=== PATIENT | female | born 1940 | race Caucasian/White ===

== ENCOUNTER 2016-09-02 10:41 | Observation (INO) | payer MEDICARE ==
[~2016-09-02] VITALS: Ht 154.9 cm; Wt 65.0 kg
[2016-09-02] VITALS (8 sets, daily range): BP systolic 116–175; BP diastolic 56–92; PULSE 59–80; RESP 12–21; O2SAT 95–98
[~2016-09-02 10:41] MED LIST: ASPI-973 PO; METO25TA6 PO
[2016-09-02 11:53] LABS: BASOPHILS % (AUTO) 0.5 % (0-3); EOSINOPHILS % (AUTO) 2.1 % (0-5); MONOCYTES % (AUTO) 9.6 % (4-12); Mean Corpuscular Hemoglobin 32.3 pg (27.0-35.0); Mean Corpuscular Volume 91.4 fL (81-100); NEUTROPHILS % (AUTO) 60.8 % (40-74); Platelet Count 260 bil/L (150-400)
--- NOTE | 2016-09-02 11:58 | DRSVH ---
PROCEDURE: X-RAY CHEST ONE VIEW, PORTABLE ([id number]) INDICATIONS: CHEST PAIN TECHNIQUE: One view of the chest was acquired. COMPARISON: [facility], , CHEST 1VW (PORTABLE), 04/26/2014, 1:35. [facility], CR, CHEST 1VW (PORTABLE), 04/18/2014, 15:24. FINDINGS: Surgical changes and devices: Previously present left humeral fixation plate. No evidence of device loosening or disruption. Lungs and pleura: No pleural effusions or pneumothorax. Lungs are clear. Mediastinum: Mediastinal contours appear normal. Heart size is normal. Bones and chest wall: No suspicious bony lesions. Overlying soft tissues appear unremarkable. IMPRESSION: Source of chest pain is not seen. Prior surgery proximal left humerus. Dictated by: Stevie Claudio M.D. on 09/02/2016 at 11:56 Approved by: Stevie Claudio M.D. on 09/02/2016 at 11:57
[2016-09-02 12:27] LABS: TROPONIN T 0.01 ug/L (0.0-0.011)
--- NOTE | 2016-09-02 12:59 | ED.REPORT ---
HPI-Chest Pain 40 and Over Date of Service Sep 02, 2016 ED Provider: Chayito Ayala MD Patient is a 76 year old female who presents to the ED due to chest pain onset this morning. She has been having intermittent chest pain every evening for the past 3 days, described as a waxing and waning, sharp pain, that lasts about 30 seconds then abates. Two nights ago it was accompanied by diaphoresis. This morning it was more severe and "quick" then it has been. She currently does not feel any pain, just a "slight pressure and burn" rated at 2/10. 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 She had 2 stents placed 10 year ago and hasn't had any chest pain until 3 days ago. Pt has had been experiencing a lot of stress this month. Nursing Notes Stated Complaint: CHEST PAIN Chief Complaint: Chest Pain Nursing Notes Reviewed: Yes Allergies: Coded Allergies: Penicillins (Verified Allergy, Severe, Rash, 04/17/14) Rash as a child Tkcomwr-Cla-Qib Reductase Inhibitor (Verified Adverse Reaction, Severe, Muscle pain, 04/17/14) Muscle pain ciprofloxacin (Verified Adverse Reaction, Severe, GI PROBLEMS (DIARRHEA), 04/17/14) morphine (Verified Adverse Reaction, Severe, Nausea, 04/17/14) niacin (Verified Adverse Reaction, Severe, leg pain, 04/17/14) Leg pain nitrofurantoin (Verified Adverse Reaction, Severe, COUGH, IRRITABILITY, ) Uncoded Allergies: LIPID EMULSIONS (Adverse Reaction, Severe, MYALGIAS, 04/17/14) Scheduled Aspirin (Aspirin) 81 Mg Tablet 81 MG PO DAILY Metoprolol Succinate ER (Metoprolol Succinate ER) 25 Mg Tab.er.24h 25 MG PO DAILY General Time Seen by MD: 12:57 Chief Complaint Chest pain Hx Obtained From: Patient Sudden in Onset?: Yes Onset Occurred: 5 - 8 hours ago Symptom Duration: Since onset Location: : Chest right Quality: Burning, Pressure Radiation: : Does not radiate Severity: Current: Pain level 2 out of 10 Recent Healthcare: No recent doctor visit Similar Sx Previous: No Past Medical History Past Medical History bladder cancer Reports: Hyperlipidemia Past Surgical History Anterior pelvic exenteration Reports: Hysterectomy Smoking History Former Smoker Social History Alcohol Use: Denies alcohol use Drug Use: Denies drug use Other Social History: Ambulatory Status Independent Review of Systems Cardiovascular: Reports: Chest pain Skin: Reports Diaphoresis Complete sys rev & neg: except as marked. Physical Exam Initial Vital Signs Vital Signs (First) Date Time Temp Pulse Resp B/P Pulse Ox O2 Delivery O2 Flow Rate FiO2 09/02/16 10:47 36.1 74 12 175/92 98 Room Air Initial VS: Reviewed Head / Eyes: Atraumatic, Normocephalic, PERRL ENT: Mucous membranes moist, Conjunctiva normal, No scleral icterus Back: No CVA tenderness Extremities: Vascular intact, Neuro intact, No swelling, No tenderness Skin: Warm, Dry, No cyanosis Neurologic: Alert, Oriented, Nonfocal Psychiatric: Mood/affect normal, Behavior normal, Normal thought content General/Constitutional: Awake, Alert, Cooperative Respiratory / Chest: Atraumatic, Breath sounds NL, Breath sounds = bilat, No respiratory distress, No rales, No rhonchi, No wheezing, No retractions Cardiovascular: Heart rate NL, Regular rhythm, Heart sounds NL, No gallop, No murmurs, No rubs Abdomen: Atraumatic, Soft, Non-tender, No guarding, No rebound, BS normoactive Interpretation & Diagnostics Lab Results Interpretation Result Diagram: 09/02/16 1135 09/02/16 1135 Test 09/02/16 11:35 White Blood Count 5.8th/mm3 (3.8-10.1) Red Blood Count 4.52mil/mm3 (3.90-5.20) Hemoglobin 14.6g/dL (12.0-15.6) Hematocrit 41.3% (35.0-46.0) Mean Corpuscular Volume 91.4fL (81-100) Mean Corpuscular Hemoglobin 32.3pg (27.0-35.0) Mean Corpuscular Hemoglobin Concent 35.4% (32.0-37.0) Red Cell Distribution Width 12.1% (12.3-15.4) Platelet Count 260bil/L (150-400) Neutrophils (%) (Auto) 60.8% (40-74) Lymphocytes (%) (Auto) 26.8% (14-46) Monocytes (%) (Auto) 9.6% (4-12) Eosinophils (%) (Auto) 2.1% (0-5) Basophils (%) (Auto) 0.5% (0-3) Sodium Level 137mEq/L (134-144) Potassium Level 4.8mEq/L (3.5-5.2) Chloride Level 100mEq/L (97-108) Carbon Dioxide Level 23mmol/L (18-29) Blood Urea Nitrogen 22mg/dL (8-27) Creatinine 1.52mg/dL (0.57-1.00) Estimat Glomerular Filtration Rate 48mL/min (>59) Glucose Level 104mg/dL (60-99) Calcium Level 9.1mg/dL (8.5-10.1) Magnesium Level 2.0mg/dL (1.6-2.6) Total Bilirubin 0.5mg/dL (0.0-1.2) Aspartate Amino Transf (AST/SGOT) 19U/L (0-50) Alanine Aminotransferase (ALT/SGPT) 7U/L (0-32) Alkaline Phosphatase 60U/L (25-165) Troponin T 0.010ug/L (0.0-0.011) Total Protein 7.2g/dL (6.4-8.4) Albumin 4.4g/dL (3.4-5.0) ECG Interpretation Time: 11:29 Interpreted by: ED physician Normal ECG Interpretation: Normal sinus rhythm (74), No acute ischemic changes Time: 13:27 Interpreted by: ED physician Normal ECG Interpretation: Normal sinus rhythm (84), No acute ischemic changes X-Ray Chest Interpretation Chest Xray Interpretation: IMPRESSION: Source of chest pain is not seen. Prior surgery proximal left humerus. Dictated by: Stevie Claudio M.D. on 09/02/2016 at 11:56 Approved by: Steive Claudio M.D. on 09/02/2016 at 11:57 View: Portable Interpretation / Wet Read by: Interpret - Radiologist Re-Eval/Medical Decision Med Decision/Clinical Course Compelling story for unstable angina with an episode 2 nights ago last night again this morning increasing frequency duration and intensity with a known history of coronary disease. Initial labs are unremarkable. We will recommend 24-hour rule out and if rules out will need a nuclear stress test tomorrow Time of Eval: 14:00 Patient Status: Condition unchanged, Mild relief Re-Evaluation/Progress Note: Pt rechecked. The minimal chest pressure she felt was relieved with nitro. 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 Accepts admit. Counseled Regarding: Diagnosis, Lab results, Need for admission Discharge & Departure Primary Impression: Unstable angina Disposition: ADMITTED TO HOSPITAL Discharge Condition All VS Reviewed: Yes Condition: Stable Referrals: Sade Walker MD (PCP) Scribe Attestation Portion of this note were transcribed by Bradley Castellanos. I, Dr. Ayala, personally performed the history, physical exam, and medical decision-making: I reviewed and confirmed the accuracy for the information in the transcribed note. Signed by: brian Guzman, 09/02/16 1500 copies to: Sade Walker MD, Shawna L MD Sep 02, 2016 12:59 BRADLEY CASTELLANOS Sep 02, 2016 13:43
[2016-09-02] MEDS ORDERED: Nitroglycerin 2% 1 Gm Ointment TOPICAL ONE (14:05)
[2016-09-02] MEDS ORDERED: METO25TA99 PO (14:50)
[2016-09-02] MEDS ORDERED: Alum-Mag Hydrox-Simeth 30 mL Suspension PO PRN (15:35)
[2016-09-02] MEDS ORDERED: Ondansetron 2 mg/mL 2 mL Inj IVPUSH PRN (15:35)
[2016-09-02] MEDS: MeTOProlol XL 25 mg ER24 Tablet PO SCH (16:40)
--- NOTE | 2016-09-02 17:04 | PCM.HPMED ---
Subjective Date of Service Sep 02, 2016 Primary Provider: Admitting Physician: Chris Wilkerson MD Primary Care Physician: Sade Walker MD Attending Physician: Chris Wilkerson MD Admit Status: From the Emergency Department Chief Complaint: Chest pain History of Present Illness: This is a 76 years old female with past medical history of coronary artery disease status post stenting 2, hyperlipidemia, bladder cancer was injected also with chest pain that started this morning. Patient described the pain as pressure-like, 6 out of 10 in intensity, intermittent and has been going on for 3 day also . She stated and abandoned, and go but has been more steady today reason for which he came to the emergency room. She endorses diaphoresis but no shortness of breath . She denies any aggravating or ligating factors. In the emergency room workup included EKG, troponin, chest x- ray all negative. Chest pain subsided with nitroglycerin paste/ transdermal. . Given her risk factor including hyperlipidemia, age, personal history of coronary artery disease status post stenting. Patient is being kept in observation to r/o ACS Review of Systems: Family history reviewed and is not contributory to the present illness Allergies Coded Allergies: Penicillins (Verified Allergy, Severe, Rash, 04/17/14) Rash as a child Kkmkclu-Ngj-Cjk Reductase Inhibitor (Verified Adverse Reaction, Severe, Muscle pain, 04/17/14) Muscle pain ciprofloxacin (Verified Adverse Reaction, Severe, GI PROBLEMS (DIARRHEA), 04/17/14) morphine (Verified Adverse Reaction, Severe, Nausea, 04/17/14) niacin (Verified Adverse Reaction, Severe, leg pain, 04/17/14) Leg pain nitrofurantoin (Verified Adverse Reaction, Severe, COUGH, IRRITABILITY, ) Uncoded Allergies: LIPID EMULSIONS (Adverse Reaction, Severe, MYALGIAS, 04/17/14) Home Medications Aspirin (Aspirin) 81 Mg Tablet 81 MG PO DAILY Metoprolol Succinate ER (Metoprolol Succinate ER) 25 Mg Tab.er.24h 25 MG PO DAILY PMH Bladder cancer,CAD status post stent x 2, hyperlipidemia Surgical History Anterior pelvic exenteration Reports: Hysterectomy Family History Family history reviewed and is noncontributory to the present illness Social History Hx Alcohol Use: No Hx Substance Use: No Hx Tobacco Use: No Smoking Status: Former Smoker Exam Vital Signs Vital Sign - Last Date Time Temp Pulse Resp B/P Pulse Ox O2 Delivery O2 Flow Rate FiO2 09/02/16 16:39 36.8 66 18 155/80 95 Room Air Exam General: Well-nourished female, in bed comfortably HEENT: Sclerae anicteric, throat not not congested Neck : Supple, no JVD, trachea is midline Chest: Normal respiratory effort: No chest wall tenderness Lungs: No chronic lung, no wheezing, vesicular breath sound bilaterally on auscultation Heart: S1, S2 regular, no pain, no murmur Abdomen: Soft and non distended . Extremity : No edema, no cyanosis, no calf tenderness Neuro : Grossly nonfocal. AAOx 3 Lab and Diagnostics Result Diagram: 09/02/16 1135 09/02/16 1135 X-Rays, CTs and MRIs Chest x-ray reviewed: No acute cardiopulmonary disease 12-lead ECG No ST depression or elevation. NSR Assessment & Plan 1. Chest pain/unstable angina 2. History of CAD status post stenting 3. Hyperlipidemia : Not on statin Put to observation. Telemetry monitoring. Troponin 3. Nitroglycerin for chest pain. Patient on aspirin , beta demetri and therapeutic dose of Lovenox started in the ER for unstable angina. She has history of CAD . Not on statin . Obtain lipid profile, TSH, hemoglobin A1c. Home medications reviewed and reconciled. Consider stress test in a.m. 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
--- NOTE | 2016-09-02 19:49 | NUR ---
ADMIT Admitted a 76/F into room 3018 following report from Barbara Saucedo RN in the ED. Pt arrived via stretcher, able to amb to bed ind. Denies any CP/discomfort or any pain at all. Pt on RA. She refused ordered ASA and Metoprolol, stating she took Metoprolol this AM prior to ER visit and took 4 ASA's prior to leaving house for ER. Tele placed, SR. Nitro paste on RU chest. Pt has a urostomy that she ind manages. Pt educated on possibility of a stress test, NPO status/caffeine limitations. She reports understanding, no testing has been ordered thus far. Introduced pt to staff and call light/bed controls.
[2016-09-03] VITALS (8 sets, daily range): BP systolic 95–133; BP diastolic 57–77; PULSE 57–80; RESP 16–20; O2SAT 96–97
[2016-09-03 08:06] LABS: TROPONIN T < 0.010 ug/L (0.0-0.011)
[2016-09-03] MEDS: MeTOProlol XL 25 mg ER24 Tablet PO SCH (08:19)
[2016-09-03 08:50] LABS: BASOPHILS % (AUTO) 0.5 % (0-3); EOSINOPHILS % (AUTO) 3.5 % (0-5); MONOCYTES % (AUTO) 13.9 % (4-12); Mean Corpuscular Volume 92.1 fL (81-100); NEUTROPHILS % (AUTO) 48.7 % (40-74); Platelet Count 228 bil/L (150-400)
--- NOTE | 2016-09-03 14:45 | DRSVH ---
[facility] [address] [place] [address] Echocardiogram Report Name: AWAIS THOMPSON MStudy Date : 09/03/2016 Height: 61 in Hospital Exam Location: [facility] Weight: 143 lb Gender: Female BSA: 1.6 m2 : 1940 Age: 76 yrs BP: 123/76 mmHg Reason For Study: UNSTABLE ANGINA Ordering Physician: HOSPITALIST [facility] Performed By: Benjy Patrick Referring Physician: Cruz Cabrera Interpretation Summary The left ventricle is normal in size. The ejection fraction is estimated to be 60-65%. There has been no significant change in LV EF since the previous study. The right ventricle is normal in size and function. There is mild mitral regurgitation. Compared to the prior echo study, there has been no change in the severity of mitral regurgitation. There is mild tricuspid regurgitation. Compared to the prior echo exam, there has been no change in TR severity. The right ventricular systolic pressure is estimated at 26 mmHg assuming a right atrial pressure of 3 mm Hg. Compared to the prior echo exam, there has been no change in the severity of pulmonary hypertension. Procedure: A two-dimensional transthoracic echocardiogram with color flow and Doppler was performed. The study quality was technically adequate. Comparison is made with the echocardiogram of 07/23/15. A contrast injection of Definity was performed to improve assessment of LV function. The suprasternal notch views were difficult to obtain and are suboptimal in quality. The patient was in normal sinus rhythm during the exam. Left Ventricle: The left ventricle is normal in size. Proximal septal thickening is noted. There is no echo evidence for significant left ventricular outflow tract obstruction. There is no thrombus. The ejection fraction is estimated to be 60-65%. There has been no significant change since the previous study. There are no focal wall motion abnormalities. Spectral Doppler of the mitral valve is reversed, with an E/A wave ratio < 1.0. Right Ventricle: The right ventricle is normal in size and function. Atria: Both atria are normal in size. Both atria have mildly decreased in size since the prior echo exam. The interatrial septum is intact with no evidence for an atrial septal defect. Mitral Valve: There is mild mitral annular calcification. There is mild mitral regurgitation. Compared to the prior echo study, there has been no change in the severity of mitral regurgitation. Aortic Valve: The aortic valve is trileaflet. The aortic valve opens well. There is mild aortic valve sclerosis. There is no aortic valve stenosis. No aortic regurgitation is present. Tricuspid Valve: The tricuspid valve is normal in structure and function. There is mild tricuspid regurgitation. The right ventricular systolic pressure is estimated at 26 mmHg assuming a right atrial pressure of 3 mm Hg. Compared to the prior echo exam, there has been no change in TR severity. Compared to the prior echo exam, there has been no change in the severity of pulmonary hypertension. Pulmonic Valve: The pulmonic valve is not well visualized. There is trace pulmonic regurgitation. Great Vessels: The aortic root is normal size. The dimensions of the ascending aorta are normal. The pulmonary artery is normal size. The IVC is of normal diameter and collapses greater than 50% with a sniff. This suggests a low right atrial pressure of 3 mm Hg. Pericardium/ Pleura There is no pericardial effusion. There is no pleural effusion. MMode/2D Measurements & Calculations LVIDd: 4.5 cm LA dimension: 2.8 cm RA long axis LVOT diam LVIDs: 2.7 cm FS: 39.9 % LA A2 area: 15.2 cm RA area AoV Opening EPSS: 0.17 cm LA A4 area: 14.4 cm IVSd: 0.87 cm LA length (vol): 4.7 cm: 12.6 cm Ao root diam LVPWd: 0.80 cm LA vol: 39.4 ml RA vol LA vol index : 33.0 ml Aortic Jxn RA : 20.1 mm2 asc Aorta IVC diam: 1.6 cm Diam: 3.3 cm LV acosta. diameter/BSA LV sys. diameter/BSA (cm/m^2): 2.7 (cm/m^2): 1.6 Doppler Measurements & Calculations Ao V2 max MV E max josef MV E/A: 0.68 TR max josef : 178.9 cm/sec : 74.2 cm/sec Med Peak E' Josef : 238.2 cm/sec Ao max P.8 mmHg MV A max josef TR max PG Ao mean P.4 mmHg : 109.4 cm/sec E/E' med: 18.0 : 22.7 mmHg LVOT Max Josef Lat Peak E' Josef PA V2 max : 109.3 cm/sec : 98.6 cm/sec E/E' lat: 15.0 PA mean PG WARREN(I,D): 1.8 cm E/e' average sev ratio: 0.65 PA Accel Time Pulm A Revs Dur : 0.11 sec MV A dur : 0.12 sec MV dec time: 0.21 secAo V2 mean LV V1 max PG PA V2 mean : 132.1 cm/sec : 74.5 cm/sec Ao V2 VTI: 39.6 cm LV V1 VTI PA pr(Accel) : 25.8 cm : 36.6 mmHg WARREN(V,D): 1.7 cm2 WARREN indexed to BSA Pulm A Revs Dur - MV A (cm^2/m^2): 1.1 Dur: -0.03 msec Reading Physician:PM
--- NOTE | 2016-09-03 15:44 | NUR ---
Testing Exercise stress test this AM, Echo this afternoon. Pt declined to have urine sampled d/t urostomy bag contamination. Reports bag to be changed tomorrow, will attempt to collect with clean device in place. Plan is to perform resting stress test tomorrow. Tele monitoring continues at this time.
--- NOTE | 2016-09-03 16:45 | NUR ---
Case Management:Explained BATEMAN to patient and . Provided copy to them and placed orig in chart. CPerryRNCCM.
--- NOTE | 2016-09-03 16:58 | DRSVH ---
PROCEDURE: 1 DAY TREADMILL STRESS TEST Rest and exercise myocardial perfusion SPECT with gated imaging and ejection fraction RADIOPHARMACEUTICAL: 8.2 mCi Tc-99m tetrafosmin IV at rest and 24.1 mCi Tc-99m tetrafosmin IV at peak exercise. [id number] was performed. INDICATIONS: unstable angina TECHNIQUE: Radiopharmaceutical was injected at peak stress test, and also at rest. SPECT images wer e obtained. SPECT myocardial perfusion images were displayed in short axis, horizontal long axis, an d vertical long axis views. Gated images were reviewed using ContraqerQUANT software. COMPARISON: None. CARDIAC STRESS: A standard Huy treadmill exercise tolerance test was performed by the patient under the supervision of an attending staff. The patient exercised for 6 minutes and 56 seconds; functional aerobic impai rment (BERNIE) is -29 %. Hemodynamic data: There is normal blood pressure and heart rate response to exercise stress. Patien t achieved 110% of maximum predicted heart rate at peak exercise. Symptoms: Patient denied chest pain during exercise. EKG: No diagnostic EKG changes of ischemia; no ectopy. FINDINGS: Raw data: There is good myocardial labeling by radiotracer. No significant motion artifacts. Left ventricle function: Gated images demonstrate normal left ventricle wall thickening. No segment al wall motion abnormality. The left ventricle resting end-diastolic volume is 28 mL. Left ventricl e stress ejection fraction is >75% ; normal values are above 45%. Myocardial perfusion: On the supine stress images, there is a large but mild intensity perfusion def ect located along the entire septum. It involves apical septum as well. On the supine rest images the perfusion defect resolves completely. On the prone stress imaging the perfusion defects along the ap ex and septum actually increases in intensity. IMPRESSION: Equivocal results. The myocardial perfusion study is abnormal in the sense that there i s a septal perfusion defect that resolves with resting and is persistent with prone stress images. Us ually this is consistent with ischemia. However, the patient has pretty good exercise capacity withou t angina and did not develop any ST changes that would be concerning for myocardial ischemia. She al so reached METs 10.1 which by itself is usually associated with good prognosis. Give the overall con text of images and treadmill results, the septal defect could be an attenuation artifact as well. Cl inical correlation is recommend. Dictated by: Cruz Cabrera Jr., M.D. on 09/03/2016 at 16:41 Approved by: Cruz Cabrera Jr., M.D. on 09/03/2016 at 16:55
--- NOTE | 2016-09-03 18:37 | PCM.PNMED ---
Subjective Date of Service Sep 03, 2016 Subjective Patient is a 76 year old female with past medical history of CAD status post stenting 2 approximately 2006, hyperlipidemia, and bladder cancer who presented to [facility] ED with chest pain that started this morning. This is day 2. This morning, patient is feeling fine and would like to go home since her cardiac enzymes were normal. Explained the need to stay and get a good work-up. She states that she doesn't use nitroglycerine at home. She has been stressed lately and she was worried that the left-sided sharp chest pain she was feeling was her heart. At the time of exam, denies chest pain, palpitations, sweating, light-headedness, nausea, vomiting, diarrhea. Her is in the room with her. Exam Vital Signs Vital Sign - Last Date Time Temp Pulse Resp B/P Pulse Ox O2 Delivery O2 Flow Rate FiO2 09/03/16 15:23 36.7 75 18 130/75 97 Room Air Intake and Output 09/02/16 09/02/16 09/03/16 Cumulative From/Thru 14:59 22:59 06:59 09/02/16 10:47 - 09/03/16 00:30 Intake Total 236 ml 236 ml Output Total 0 ml 0 ml Balance 236 ml 236 ml Intake Oral 236 ml 236 ml Output Urine Total 0 ml 0 ml # Bowel Movements 0 0 Exam General: Well-nourished female, sitting on the side of her bed comfortably HEENT: Sclerae anicteric, no thyromegaly Neck : Supple, no JVD, trachea is midline Chest: Normal respiratory effort: No chest wall tenderness Lungs: Clear to auscultation bilaterally Heart: S1, S2 regular, no murmur, gallops or rubs Abdomen: Soft and non distended . Extremity : No edema, no cyanosis, no calf tenderness Neuro : Grossly nonfocal. AAOx 3 IVs and Medications Medications Reviewed: Medications were reviewed in detail Lab and Diagnostics Result Diagram: 09/03/1662909/03/16629 12-lead ECG No ST depression or elevation. NSR. Heart rate 68. Cardiac Echo Impressions Assessment & Plan Patient is a 76 year old female with past medical history of CAD status post stenting 2 approximately 2006, hyperlipidemia, and bladder cancer who presented to [facility] ED with chest pain that started this morning. This is day 2. 1. Left-sided sharp chest pain, present on admission, resolved. - Patient has a history of CAD, s/p 2 stents 10 years ago - Non-diabetic, former smoker, dyslipidemia but allergic to statins, not on blood pressure medications at home - Troponin negative x3 - EKG unremarkable - Patient NPO for echocardiogram and 1st part of stress test today - Aspirin, beta demetri, myalgias on statins, NG for chest pain not used, therapeutic dose of lovenox - TSH normal - A1c pending 2. Dyslipidemia, present on admission, chronic - Patient not on statin because of myalgias - Started Zetia - Lipid profile obtained: Tcholesterol 232, HDL 42 3. History of CAD status post stenting, present on admission, chronic - aspirin, see #1 above Anticipate discharge 09/04/16 . VTE Prophylaxis: Sub-Q Enoxaparin VTE Mechanical Devices: Venous Foot Pump Attending Statement The patient was seen and examined together with Dr. Perea on 09/03/2016 and I agree with the history, exam and plan as outlined in the note above. Yoanna Perea DO Sep 03, 2016 18:37 Robin Michaud MD Sep 04, 2016 13:45 Put to observation. Telemetry monitoring. Troponin 3. Nitroglycerin for chest pain. Patient on aspirin , beta demetri and therapeutic dose of Lovenox started in the ER for unstable angina. She has history of CAD . Not on statin . Obtain lipid profile, TSH, hemoglobin A1c. Home medications reviewed and reconciled. Consider stress test in a.m. or as outpatient with her primary msw if troponin is negative VTE Prophylaxis: Sub-Q Enoxaparin VTE Mechanical Devices: Venous Foot Pump Yoanna Perea DO Sep 03, 2016 18:37
[2016-09-04 02:15] VITALS: BP 102/63; PULSE 63; RESP 20; O2SAT 97
[2016-09-04 04:58] VITALS: PULSE 59
[2016-09-04 05:29] VITALS: BP 114/70; PULSE 65; RESP 20; O2SAT 99
--- NOTE | 2016-09-04 06:57 | NUR ---
NPO Pt has been NPO since midnight and caffeine free due to resting stress test in the AM. Denies chest discomfort and shortness of breath. Pt appears to have rested well without distress. Care ongoing.
[2016-09-04 08:00] VITALS: PULSE 71
[2016-09-04 08:36] VITALS: BP 105/70; PULSE 61
[2016-09-04] MEDS ORDERED: EZET10TA PO (08:46)
[2016-09-04] MEDS ORDERED: NITR0.4T SL (08:46)
[2016-09-04] MEDS: MeTOProlol XL 25 mg ER24 Tablet PO SCH (08:49)
--- NOTE | 2016-09-04 08:54 | PCM.DIMED ---
Sophia Marshall DO 09/04/16 0850: Discharge Instructions Date of Service Sep 04, 2016 Dates of Hospitalization Sep 02, 2016 at 16:05 Discharge Diagnosis Discharge Diagnosis Acute chest pain, present on admission. Resolved. Chronic hyperlipidemia, present on admission. Stable. History of urinary artery disease status post stenting, present on admission. Stable. . Medication Instructions Continued medications: Aspirin 81 mg daily. Metoprolol succinate 25 mg daily. New medications: Zetia 10 mg daily. Nitroglycerin sublingual 0.4 mg every 5 minutes as needed for chest pain. . Diet Low fat, Low Sodium, Heart Healthy Activity No restrictions Call your provider Chest pain, Weakness (unilateral) Patient Instructions Follow-up plan Please follow-up with your primary care provider, Dr. Valle, regarding your recent hospitalization for acute chest pain. Please also follow up with your chiseler head, Dr. Cabrera, in the next 2-4 weeks. Follow-up Provider: Sade Walker MD Follow-up with PCP in: 1 week Provider: Cruz Cabrera MD Follow-up in: 2 weeks Robin Michaud MD 09/04/16 1340: Sophia Marshall DO Sep 04, 2016 08:50 Robin Michaud MD Sep 04, 2016 13:40
--- NOTE | 2016-09-04 10:31 | NUR ---
Discharge pt ordered for discharge home and to follow up with primary providers. discharge instructions and medications reviewed with patient. pt offered wheelchair, pt refused. pt ambulated off unit with steady gait and all belongings at about 1025.
--- NOTE | 2016-09-04 10:32 | NUR ---
Social Work: Attempted Initial Assessment / Discharge Data: Pt is a 76 y/o female admitted for unstable angina. Pt's PCP is Dr Walker, pt's insurance is Medicare with [employer] supp. EMR reviewed, pt discussed in rounds. MD states pt ready for d/c today. EXPERIMENTAL MECHANIC [employer] attemtped to see pt after rounds, pt had already discharged. EXPERIMENTAL MECHANIC [employer] called pt at home phone number, no answer. EXPERIMENTAL MECHANIC [employer] left a message requesting a call back to ensure pt has what they need set up at home. From chart review and from staff anesthetist, pt is independent at baseline, and was moving independently in the room prior to d/c. No d/c planning needs anticipated. EXPERIMENTAL MECHANIC ELECTRICAL will await phone call from pt or spouse. Assessment: Pt who is independent at baseline. Plan: Pt discharged home via POV with spouse today. No d/c planning needs anticipated. EXPERIMENTAL MECHANIC [employer]LECTR[employer] will await phone call from pt or spouse. ARACELIS Blackwell
--- NOTE | 2016-09-04 11:12 | PCM.DC.MED ---
Discharge Summary Date of Service Sep 04, 2016 Dates of Hospitalization Date of Hospital Admission Sep 02, 2016 at 16:05 Date of Discharge: Sep 04, 2016 Providers: Admitting Physician: Chris Wilkerson MD Primary Care Physician: Sade Walker MD Attending Physician: Chris Wilkerson MD Diagnosis at Time of Discharge Diagnosis at Time of Discharge Acute chest pain, present on admission. Resolved. Chronic hyperlipidemia, present on admission. Stable. History of urinary artery disease status post stenting, present on admission. Stable. . Procedures ECG [address] depression or elevation. NSR. Heart rate 68. Cardiac Echo Impression Brief History This is a 76 years old female with past medical history of coronary artery disease status post stenting 2, hyperlipidemia, bladder cancer was injected also with chest pain that started this morning. Patient described the pain as pressure-like, 6 out of 10 in intensity, intermittent and has been going on for 3 day also . She stated and abandoned, and go but has been more steady today reason for which he came to the emergency room. She endorses diaphoresis but no shortness of breath . She denies any aggravating or ligating factors. In the emergency room workup included EKG, troponin, chest x- ray all negative. Chest pain subsided with nitroglycerin paste/ transdermal. . Given her risk factor including hyperlipidemia, age, personal history of coronary artery disease status post stenting. Patient is being kept in observation to r/o ACS Hospital Course Patient is a 76 year old female with past medical history of CAD status post stenting 2 approximately 2006, hyperlipidemia, and bladder cancer who presented to [facility] ED with chest pain that started this morning. This is day 2. 1. Chest Pain, Resolved. Non Cardiac - Patient has a history of CAD, s/p 2 stents 10 years ago - Non-diabetic, former smoker, dyslipidemia but allergic to statins, not on blood pressure medications at home - Troponin negative x3 - EKG unremarkable - Pt underwent a NM stress test which was essentially equivocal, her Wood Science Professor (Dr. Cabrera) is aware of the results - Aspirin, beta demetri, myalgias on statins, NG for chest pain not used, therapeutic dose of lovenox - TSH normal - A1c pending 2. Dyslipidemia, present on admission, chronic - Patient not on statin because of myalgias - Started Zetia, this is to be continued as an outpatient - Pt counseled to eat a low cholesterol diet - Lipid profile obtained: Tcholesterol 232, HDL 42 3. History of CAD status post stenting, present on admission, chronic - aspirin, see #1 above Exam Vital Signs (Last) Date Time Temp Pulse Resp B/P Pulse Ox O2 Delivery O2 Flow Rate FiO2 09/04/16 08:36 61 105/70 09/04/16 05:29 36.7 20 99 Room Air Exam GENERAL: NAD, Pt laying in bed comfortably HEENT: AT/NC, PERRLA, EOMI, Mucus Membranes are moist CARDIAC: RRR; No M/R/G PULM: CTAB; No wheezes or rhonchi bilaterally ABD: Soft, Nontender, Nondistended, Positive bowel sounds in all quadrants, No Hepatosplenomegaly appreciated NEURO: Alert and oriented x3; Following all commands PSYCH: Normal mood and affect Test 09/02/16 11:35 09/03/16 06:30 09/04/16 06:17 Magnesium Level 2.0mg/dL (1.6-2.6) Pro-B-Type Natriuretic Peptide 188.6pg/mL (0-738) White Blood Count 4.0th/mm3 (3.8-10.1) Red Blood Count 4.16mil/mm3 (3.90-5.20) Hemoglobin 13.3g/dL (12.0-15.6) Hematocrit 38.3% (35.0-46.0) Mean Corpuscular Volume 92.1fL (81-100) Mean Corpuscular Hemoglobin 32.0pg (27.0-35.0) Mean Corpuscular Hemoglobin Concent 34.7% (32.0-37.0) Red Cell Distribution Width 12.2% (12.3-15.4) Platelet Count 228bil/L (150-400) Neutrophils (%) (Auto) 48.7% (40-74) Lymphocytes (%) (Auto) 33.4% (14-46) Monocytes (%) (Auto) 13.9% (4-12) Eosinophils (%) (Auto) 3.5% (0-5) Basophils (%) (Auto) 0.5% (0-3) Hemoglobin A1c 5.4% (4.8-5.6) Total Bilirubin 0.5mg/dL (0.0-1.2) Aspartate Amino Transf (AST/SGOT) 17U/L (0-50) Alanine Aminotransferase (ALT/SGPT) 6U/L (0-32) Alkaline Phosphatase 55U/L (25-165) Troponin T < 0.010ug/L (0.0-0.011) Total Protein 6.3g/dL (6.4-8.4) Albumin 3.9g/dL (3.4-5.0) Triglycerides Level 148mg/dL (0-149) Cholesterol Level 232mg/dL (100-199) LDL Cholesterol, Calculated 155.400mg/dL (0-99) VLDL Cholesterol 29.600mg/dL HDL Cholesterol 47mg/dL (>39) Cholesterol/HDL Ratio 4.94 (0.0-4.4) Thyroid Stimulating Hormone (TSH) 1.220uIU/mL (0.450-4.500) Sodium Level 141mEq/L (134-144) Potassium Level 4.5mEq/L (3.5-5.2) Chloride Level 104mEq/L (97-108) Carbon Dioxide Level 25mmol/L (18-29) Blood Urea Nitrogen 20mg/dL (8-27) Creatinine 1.40mg/dL (0.57-1.00) Estimat Glomerular Filtration Rate 53mL/min (>59) Glucose Level 109mg/dL (60-99) Calcium Level 8.8mg/dL (8.5-10.1) Discharge Medications Discharge Medications Aspirin (Aspirin) 81 Mg Tablet 81 MG PO DAILY (Reported) Ezetimibe (Zetia) 10 Mg Tablet 10 MG PO DAILY Prescribed by: HEBERT HERRERA DO Metoprolol Succinate ER (Metoprolol Succinate ER) 25 Mg Tab.er.24h 25 MG PO DAILY (Reported) As needed Nitroglycerin SL (Nitrostat) 0.4 Mg Tab.subl 0.4 MG SL Q5MIN PRN PRN For Chest Pain Prescribed by: HEBERT HERRERA DO Additional med instructions Continued medications: Aspirin 81 mg daily. Metoprolol succinate 25 mg daily. New medications: Zetia 10 mg daily. Nitroglycerin sublingual 0.4 mg every 5 minutes as needed for chest pain. . Followup Plan Follow-up plan Please follow-up with your primary care provider, Dr. Valle, regarding your recent hospitalization for acute chest pain. Please also follow up with your wind commissioning technician, Dr. Cabrera, in the next 2-4 weeks. Discharge Diet: Low fat, Low Sodium, Heart Healthy Discharge Activity: No restrictions Follow-up Provider: Sade Walker MD Follow-up with PCP in: 1 week Provider: Cruz Cabrera MD Follow-up in: 2 weeks Attending Statement The patient was seen and examined together with Dr. Herrera on 09/04/2016 and I agree with the history, exam and plan as outlined in the note above. Hebert Herrera DO Sep 04, 2016 11:11 Robin Michaud MD Sep 04, 2016 13:44
== END 2016-09-04 10:27 | disposition home or self-care (01) ==
LOC: SED 10:41 → MPC 16:05
PROVIDERS: ADMIT Internal Medicine; ATTEND Internal Medicine
DX: R07.89 Other chest pain (principal); E78.5 Hyperlipidemia, unspecified; I25.110 Atherosclerotic heart disease of native coronary artery with unstable angina pectoris; Z95.5 Presence of coronary angioplasty implant and graft; Z85.51 Personal history of malignant neoplasm of bladder; Z87.891 Personal history of nicotine dependence; Z79.82 Long term (current) use of aspirin
CPT/HCPCS: 36415; 71010; 78452; 80048; 80053; 80061; 83036; 83735; 83880; 84443; 84484; 85025; 93005; 93017; 96372; 99285; A9502; C8929; G0378; J1650; Q9957